=== PATIENT | female | born 1955 | race Caucasian/White ===

== ENCOUNTER → 2016-10-20 | Outpatient (CLI) | payer OTHER ==
[~2016-10-20] MED LIST: ANT25 PO; ASPI-435 PO; CYAN500S5 PO; LEVO75TA33 PO; LOSA50TA54 PO; OMEG10007 PO; TAMO20TA9 PO
== END | disposition home or self-care (01) ==
LOC: C.LABSPEC 13:21
PROVIDERS: ATTEND Family Medicine
DX: Z12.11 Encounter for screening for malignant neoplasm of colon (principal)

== ENCOUNTER → 2016-12-24 | Outpatient (CLI) | payer BC, OTHER ==
[~2016-12-24] MED LIST changes: +TAMO20TA47 PO; -TAMO20TA9 PO
[2016-12-24 13:35] VITALS: BP 105/71; PULSE 65; TEMP 36.7; O2SAT 95
--- NOTE | 2016-12-24 16:25 | Radiation Oncology Follow-Up ---
Radiation Oncology Follow-Up Date of Visit Dec 24, 2016. Reason For Visit Annual follow-up Radiation Completion Date finished 11-02-2012 Diagnosis (1) Breast cancer Status: Resolved Onset Date: 07/20/2012 Histology Subtype: ductal Stage: ll (A) Permanent Comment: Self detected right breast mass June 2012 Status post biopsy revealing infiltrating ductal carcinoma Estrogen receptor positive, progesterone receptor positive, HER-2/jakub negative Status post right partial mastectomy and sentinel lymph node biopsy pathologic stage pT2 pN0M0 Oncotype DX 22 Status post completion of radiation therapy 11/02/2012 received 6000 cGy. Ongoing treatment with tamoxifen Last Edited By: Radha Tobias on Jun 26, 2015 16:10 History of Present Illness Ms. Holt is a 60-year-old female who is undergoing annual screening mammograms. Her most recent normal mammogram was on January 20, 2012. This showed no significant masses, calcifications, or other abnormal findings and was given a BI-RAD Code 2 with a recommended one-year followup. In June of 2012, however, patient self-detected a right breast mass in the outer portion of the right breast. She underwent a diagnostic mammogram and breast ultrasound on July 18, 2012. The lesion was identifiable to the examining radiologist. It measured 1.8 x 2 cm and was firm located at the 9:00 posterior depth position of the right breast. It was felt to be highly suggestive of malignancy and a biopsy was recommended. On July 20, 2012 an ultrasound-guided biopsy of the right breast with marking device inserted and post-digital mammographic and ultrasound imaging were performed. Biopsies confirmed a mass consistent with an infiltrating ductal carcinoma with a [place] score of 6 of 9. The tumor measured up to 0.6 cm on core biopsy. No CIS or LCIS identified. No lymphovascular or perineural invasion identified. Estrogen and Progesterone receptors were positive. HER-2/jakub was +1 and negative. Case 15- [id number]. The tissue was HER-2/jakub negative by FISH. After discussion of treatment options with the patient she opted to proceed with breast conserving therapy. Dr. Sorensen therefore proceeded with a partial mastectomy and sentinel lymph node biopsy. This procedure was performed on August 10, 2012. This confirmed an infiltrating ductal carcinoma [place] grade 7 of 9. The tumor measured 2.8 x 2.3 x 2.0 cm. DCIS was noted which was solid and cribriform with focal necrosis and a nuclear grade 2 out of 3. No LCIS was identified. The initial margins revealed infiltrating carcinoma extending to within less than 0.1 cm of the 12:00 margin and 0.1 cm of the 6:00 margin. Remaining en face margins are negative for in situ and invasive carcinoma. Atypical ductal hyperplasia is noted at the en face 9:00 margin. No lymphovascular invasion as noted but perineural invasion is present. Additional margins taken from the 12:00, 3:00, 6:00, 9:00 and posterior margins were all negative for in situ and invasive carcinoma. A single sentinel lymph node was identified. Isolated tumor cells were noted on routine sections and immunohistochemical stains for cytokeratin. The final pathology was therefore a pT2pN0(i+) (sn) stage IIa. Case 13 - [id number]. ER positive, DE positive, HER-2/jakub negative. The patient was seen by Dr. Dioni Mederos for evaluation of the role of adjuvant therapy. The recurrent score was a 22 which corresponds to an average rate of distant recurrence at 5 years following 5 years of Tamoxifen of 14%. With this information and after discussion of the risks and benefits of chemotherapy the patient chose to not proceed with chemotherapy but has agreed to hormonal therapy. She underwent radiation therapy to the whole breast completed 11/02/2012 received 6000 cGy. Interim History She's been doing well over this past year. She denies any changes to her breast. She is noted no masses or tenderness and no change of the axilla. She has no swelling of her arm. She is up-to-date on mammography. She was hospitalized briefly for Mnire's disease. She takes meclizine on a when necessary basis and and is steadily improving. She did undergo an MRI of the brain. In that was negative for intracranial masses and hemorrhage. The mammogram that was performed in February recommended follow-up MRI of the breast. We did discuss this over the phone and she declined the MRI. This was due to insurance coverage. She wished to continue with follow-up mammography alone. She does have a mammogram scheduled for February 2017. She continues on tamoxifen. Allergies Coded Allergies: Latex (Verified Allergy, Intermediate, RASH, ITCHY, 05/09/16) Home Medications Scheduled Aspirin (Aspirin 81), 81 MG PO DAILY Cyanocobalamin (Vitamin B-12), 500 MCG PO DAILY Fish Oil ([place]-3), 1 CAP PO DAILY Levothyroxine (Levoxyl), 0.075 MG PO DAILY Losartan Potassium (Cozaar), 1 TAB PO DAILY Tamoxifen (Nolvadex), 20 MG PO DAILY Scheduled PRN Meclizine HCl (Meclizine HCl), 25 MG PO Q6H PRN for dizzyness/nausea Review of Systems Gastrointestinal: Symptoms: WNL Oral: Symptoms: No Problems Respiratory: Symptoms: WNL Other Respiratory: " I had a sore throat for about 3 weeks, getting a little better " Urinary: Symptoms: WNL Skin: Symptoms: No Problems Breast: Right Upper Arm Measurement: 37.0 Right Mid Arm Measurement: 30.9 Right Wrist Measurement: 18.4 Left Upper Arm Measurement: 35.5 Left Mid Arm Measurement: 29.0 Left Wrist Measurement: 18.5 Arm Dominence: Right Patient Cosmetic Evaluation: Excellent Staff Cosmetic Evalaluation: Excellent Physical Exam Vital Signs Date Time Temp Pulse Resp B/P (MAP) Pulse Ox O2 Delivery O2 Flow Rate FiO2 12/24/16 13:35 36.7 65 20 105/71 95 Pain: Side: Bilateral Patient Pain Scale: 0 - 10 Initial Pain Intensity: 0.0 General Appearance: no apparent distress Eyes: normal inspection, EOMI ENT: normal ENT inspection, hearing grossly normal Neck: no adenopathy, thyroid normal Respiratory/Chest: lungs clear, no respiratory distress, no accessory muscle use Breast: Breast examination reveals well-healed incisions of the right breast. Her no masses or tenderness and no axillary adenopathy. There is mild deficit in the area of the lumpectomy site. There is slight telangiectasia. There are no masses or tenderness no axillary adenopathy. Using the [place] score cosmesis she has a good outcome. The left breast showed no masses or tenderness and no axillary adenopathy. Cardiovascular: regular rate, rhythm, no gallop, no murmur Abdomen: non tender, soft, no organomegaly Extremities: no pedal edema Neurologic/Psychiatric: no motor/sensory deficits, alert, normal mood/affect Skin: warm/dry Laboratory Studies Test 10/20/16 00:00 Stool Occult Blood NEGATIVE (NEGATIVE) Stool Occult Blood Sample #2 NEGATIVE (NEGATIVE) Stool Occult Blood Sample #3 NEGATIVE (NEGATIVE) Additional Studies Patient: AWAIS HOLT [facility] Rec: [id number] Address1: [address] Address2: Acct ID: [id number] Date: 1955 Sex: F Ref Phy: Att Phy: Radha Tobias PA-C Rita Phy: Leon Bush M.D. Inter Phy: Aleah Sevilla MD [facility] Zip: [place] [address] SC: C.MAMM Report #: [id number] Cytology Technologist: JV Diagnosis: HX OF BREAST CA C50.411 Service Date: 03/09/16 MNE: [id number] Ordering Dr: Radha Tobias PA-C CC: Radha Tobias PA-C CONF: DICTATED BY: Aleah Sevilla MD MAMMOGRAPHY REPORT BILATERAL DIGITAL DIAGNOSTIC MAMMOGRAM 3D/2D WITH CAD: 03/09/2016 CLINICAL HISTORY: Asymptomatic. Personal history of breast cancer. MRI guided biopsy performed in the right breast in March 2015 yielded benign pathology results. Comparison is made to exams dated: 04/03/2015 mammogram, 04/03/2015 MRI biopsy , 03/05/2015 mammogram, 03/05/2015 ultrasound, 02/25/2015 breast MRI, and 2014 mammogram - [facility]. FINDINGS: Bilateral CC and MLO 2-D digital anterolisthesis images were obtained. The tissue of both breasts is heterogeneously dense, which may obscure small masses. Current study was also evaluated with a Computer Aided Detection (CAD) system. There is evidence of previous surgery in the right breast. A metallic biopsy marker is also seen in the 11:00 right breast, denoting the site of recent MRI guided biopsy which yielded benign pathology. There are benign rim calcifications in the right breast. No new suspicious mass, architectural distortion or cluster of microcalcifications is seen bilaterally. IMPRESSION: ACR BI-RADS CATEGORY 2: BENIGN 1. There is no mammographic evidence of malignancy bilaterally. A 1 year screening mammogram is recommended. 2. A follow-up breast MRI is also recommended to ensure stability after the right breast MRI guided biopsy which breast performed in March 2015 and also to provide additional screening in the left breast, given the personal history of breast cancer. This is also recommended after the biopsy from the report dated 04/03/2015. These results and recommendations were discussed with the patient at the time of the exam. Approximately 10% of breast cancers are not detected with mammography. A negative mammographic report should not delay biopsy if a clinically suggestive mass is present. Aleah Sevilla M.D. ay/:03/09/2016 14:09:00 Customer Care Specialist: Shannan Good, [facility] letter sent: Normal 1/2 BI-RADS Code: ACR BI-RADS Category 2: Benign Dictated by: Aleah Sevilla MD Signed by: Aleah Sevilla MD Assessment & Plan Plan: Continue with annual mammography. We reviewed again today the follow-up MRI of the breast. In T MUSE to have concern with insurance coverage and declines to have an MRI of the breasts. She'll continue tamoxifen. Continue regular follow-up with Dr. Mederos and her primary care provider. We asked her to return to our office in 1 year. She may call if she has any questions or concerns in the interim. Total Time In Follow-Up I spent 20 minutes speaking to the patient and perform examination. I set 15 minutes reviewing information in completing this note Copy To Leon Bush M.D.; Dioni Mederos M.D. Problem Qualifiers (1) Breast cancer: Breast location: upper outer quadrant of breast Estrogen receptor status: positive Patient sex: female Laterality: right Qualified Codes: C50.411 - Malignant neoplasm of upper-outer quadrant of right female breast; Z17.0 - Estrogen receptor positive status [ER+]
== END | disposition home or self-care (01) ==
LOC: C.ONC 13:16
PROVIDERS: ATTEND Physician Assistant Medical
DX: Z08 Encounter for follow-up examination after completed treatment for malignant neoplasm (principal); Z92.3 Personal history of irradiation; Z85.3 Personal history of malignant neoplasm of breast

== ENCOUNTER → 2017-03-15 | Outpatient (CLI) | payer OTHER ==
[~2017-03-15] MED LIST changes: -TAMO20TA47 PO; +TAMO20TA9 PO
--- NOTE | 2017-03-15 13:35 | MAMMOGRAPHY REPORT ---
BILATERAL DIGITAL DIAGNOSTIC MAMMOGRAM TOMOSYNTHESIS WITH CAD: 03/15/2017 CLINICAL HISTORY: Asymptomatic. Personal history of breast cancer. TECHNIQUE: Bilateral breast tomosynthesis in addition to standard 2D mammography was performed. Curre nt study was also evaluated with a Computer Aided Detection (CAD) system. COMPARISON: Comparison is made to exams dated: 03/09/2016 mammogram, 03/05/2015 mammogram, 09/03/2014 mammogram, 03/05/2014 mammogram, 03/21/2013 mammogram, and 07/18/2012 ultrasound - [facility]. BREAST COMPOSITION: The tissue of both breasts is heterogeneously dense, which may obscure small mas ses. FINDINGS: There is evidence of prior lumpectomy in the upper outer posterior right breast, with expec marlena architectural distortion and mild skin irregularity. There is a also stable dumbbell shaped biop sy marker clip in the 11:00 to 12:00 posterior right breast, denoting the site of prior benign MRI gu ided biopsy. There is a small amount of expected architectural distortion along the biopsy tract as well. No new suspicious mass, architectural distortion or cluster of microcalcifications is seen nalini aterally. IMPRESSION: ACR BI-RADS CATEGORY 2: BENIGN Stable mammographic appearance of the breast including postsurgical and postbiopsy changes in the rig ht breast, without mammographic evidence of malignancy bilaterally. Recommend routine screening mamm ography in one year and also consider additional surveillance with breast MRI given heterogeneously d ense breasts and personal history of right breast cancer. These results and recommendations were discussed with the patient at the time of the exam. Approximately 10% of breast cancers are not detected with mammography. A negative mammographic report should not delay biopsy if a clinically suggestive mass is present. Aleah Sevilla M.D. ay/:03/15/2017 12:39:12 Victims Advocate Clerk/Specialist: Rose HEARN(Oleg)(M), [facility] letter sent: Normal 1/2 BI-RADS Code: ACR BI-RADS Category 2: Benign
== END | disposition home or self-care (01) ==
LOC: C.MAMM 10:55
PROVIDERS: ATTEND Family Medicine
DX: Z85.3 Personal history of malignant neoplasm of breast (principal)

== ENCOUNTER → 2017-08-17 | Outpatient (CLI) | payer BC ==
--- NOTE | 2017-08-17 13:10 | DIAGNOSTIC IMAGING REPORT ---
RIGHT TIBIA AND FIBULA 2 VIEWS CLINICAL HISTORY: Fall with right leg pain. FINDINGS: AP and lateral views of the right tibia and fibula are obtained. No prior studies are available for comparison at the time of dictation. The skeletal structures are osteopenic. There is no radiographic evidence of right tibial fracture. A minimally distracted spiral fracture of the distal fibula is observed. Overlying soft tissue edema is noted. The knee and ankle joints are grossly maintained. IMPRESSION: 1. There is a minimally distracted spiral fracture of the distal fibula. 2. No tibial fracture is seen. Electronically signed by: Leon Kapoor M.D. 08/17/2017 1:09 PM Dictated Date/Time: 08/17/2017 1:08 PM
--- NOTE | 2017-08-17 13:11 | DIAGNOSTIC IMAGING REPORT ---
R ANKLE MIN 3 VIEWS ROUTINE CLINICAL HISTORY: M25.571 right ankle pain status post trauma COMPARISON: None. DISCUSSION: There is an oblique fracture of the distal fibula with 2.5 mm of maximal displacement. No tibial fractures are visualized. The ankle mortise appears intact on these nonstress views. There is prominent calcaneal spurring. IMPRESSION: Oblique fracture of the distal fibula. Electronically signed by: Mahin Paredes M.D. 08/17/2017 1:10 PM Dictated Date/Time: 08/17/2017 1:08 PM
== END | disposition home or self-care (01) ==
LOC: C.LAB 12:28
PROVIDERS: ATTEND Family Medicine
DX: S82.441A Displaced spiral fracture of shaft of right fibula, initial encounter for closed fracture (principal); X58.XXXA Exposure to other specified factors, initial encounter

== ENCOUNTER → 2017-12-23 | Outpatient (CLI) | payer BC ==
[2016-12-24 13:35] VITALS: BP 105/71; PULSE 65
[~2017-12-23] MED LIST changes: +ATEN50TA8 PO; +RIVA1TAB4 PO
[2017-12-23 13:16] VITALS: BP 117/79; PULSE 64; TEMP 36.7; O2SAT 100
--- NOTE | 2017-12-23 14:45 | Radiation Oncology Follow-Up ---
Radiation Oncology Follow-Up Date of Visit Dec 23, 2017. Reason For Visit Annual follow-up Radiation Completion Date 11/02/12 Diagnosis (1) Breast cancer Status: Resolved Onset Date: 07/20/2012 Histology Subtype: Ductal Stage: ll (A) Permanent Comment: Self detected right breast mass June 2012 Status post biopsy revealing infiltrating ductal carcinoma Estrogen receptor positive, progesterone receptor positive, HER-2/jakub negative Status post right partial mastectomy and sentinel lymph node biopsy pathologic stage pT2 pN0M0 Oncotype DX 22 Status post completion of radiation therapy 11/02/2012 received 6000 cGy. Ongoing treatment with tamoxifen Last Edited By: Radha Tobias on Jun 26, 2015 16:10 History of Present Illness Ms. Holt had been undergoing annual screening mammograms. Her most recent normal mammogram was on January 20, 2012. This showed no significant masses, calcifications, or other abnormal findings and was given a BI-RAD Code 2 with a recommended one-year followup. In June of 2012, however, patient self-detected a right breast mass in the outer portion of the right breast. She underwent a diagnostic mammogram and breast ultrasound on July 18, 2012. The lesion was identifiable to the examining radiologist. It measured 1.8 x 2 cm and was firm located at the 9:00 posterior depth position of the right breast. It was felt to be highly suggestive of malignancy and a biopsy was recommended. On July 20, 2012 an ultrasound-guided biopsy of the right breast with marking device inserted and post-digital mammographic and ultrasound imaging were performed. Biopsies confirmed a mass consistent with an infiltrating ductal carcinoma with a Warren score of 6 of 9. The tumor measured up to 0.6 cm on core biopsy. No CIS or LCIS identified. No lymphovascular or perineural invasion identified. Estrogen and Progesterone receptors were positive. HER-2/jakub was +1 and negative. Case [id number]. The tissue was HER-2/jakub negative by FISH. After discussion of treatment options with the patient she opted to proceed with breast conserving therapy. Dr. Sorensen therefore proceeded with a partial mastectomy and sentinel lymph node biopsy. This procedure was performed on August 10, 2012. This confirmed an infiltrating ductal carcinoma Warren grade 7 of 9. The tumor measured 2.8 x 2.3 x 2.0 cm. DCIS was noted which was solid and cribriform with focal necrosis and a nuclear grade 2 out of 3. No LCIS was identified. The initial margins revealed infiltrating carcinoma extending to within less than 0.1 cm of the 12:00 margin and 0.1 cm of the 6:00 margin. Remaining en face margins are negative for in situ and invasive carcinoma. Atypical ductal hyperplasia is noted at the en face 9:00 margin. No lymphovascular invasion as noted but perineural invasion is present. Additional margins taken from the 12:00, 3:00, 6:00, 9:00 and posterior margins were all negative for in situ and invasive carcinoma. A single sentinel lymph node was identified. Isolated tumor cells were noted on routine sections and immunohistochemical stains for cytokeratin. The final pathology was therefore a pT2pN0(i+) (sn) stage IIa. Case 13 - [id number]. ER positive, LA positive, HER-2/jakub negative. The patient was seen by Dr. Dioni Mederos for evaluation of the role of adjuvant therapy. The recurrent score was a 22 which corresponds to an average rate of distant recurrence at 5 years following 5 years of Tamoxifen of 14%. With this information and after discussion of the risks and benefits of chemotherapy the patient chose to not proceed with chemotherapy but has agreed to hormonal therapy. She underwent radiation therapy to the whole breast completed 11/02/2012 received 6000 cGy. Interim History She has been doing well over this past year in regards to her breast. She is noted no masses or tenderness no change of the axilla. She has had no swelling of her arm. She is up-to-date on mammography. She did fall on the ice and sustained a fracture to her ankle. More recently she developed a DVT and is now on Xarelto. Allergies Coded Allergies: Latex (Verified Allergy, Intermediate, RASH, ITCHY, 05/09/16) Home Medications Scheduled Atenolol (Tenormin), 50 MG PO DAILY Cyanocobalamin (Vitamin B-12), 500 MCG PO DAILY Fish Oil (Rahway-3), 1 CAP PO DAILY Levothyroxine (Levoxyl), 0.075 MG PO DAILY Losartan Potassium (Cozaar), 1 TAB PO DAILY Rivaroxaban (Xarelto), 1 TAB PO DAILY Tamoxifen (Nolvadex), 20 MG PO DAILY Scheduled PRN Meclizine HCl (Meclizine HCl), 25 MG PO Q6H PRN for dizzyness/nausea Review of Systems Gastrointestinal: Symptoms: WNL Oral: Symptoms: No Problems Respiratory: Symptoms: WNL Other Respiratory: " I had a sore throat for about 3 weeks, getting a little better " Urinary: Symptoms: WNL Skin: Symptoms: No Problems Breast: Right Upper Arm Measurement: 36.0 Right Mid Arm Measurement: 31.3 Right Wrist Measurement: 18.0 Left Upper Arm Measurement: 35.0 Left Mid Arm Measurement: 30.3 Left Wrist Measurement: 17.8 Arm Dominence: Right Patient Cosmetic Evaluation: Excellent Staff Cosmetic Evalaluation: Excellent Physical Exam Vital Signs Date Time Temp Pulse Resp B/P (MAP) Pulse Ox O2 Delivery O2 Flow Rate FiO2 12/23/17 13:16 36.7 64 16 117/79 100 ECOG Performance Status: 0 Fatigue: None General Appearance: no apparent distress Eyes: normal inspection, EOMI ENT: normal ENT inspection, hearing grossly normal Neck: no adenopathy, thyroid normal Respiratory/Chest: lungs clear, no respiratory distress, no accessory muscle use Breast: Breast examination reveals well-healed incisions of the right breast. There are no masses or tenderness and no axillary adenopathy. There are generalized fibrocystic changes. Using the [place] score cosmesis she has a good outcome. Left breast showed no masses or tenderness and no axillary adenopathy. Cardiovascular: regular rate, rhythm, no gallop, no murmur Extremities: no pedal edema Neurologic/Psychiatric: no motor/sensory deficits, alert, normal mood/affect Skin: warm/dry Lymphatic: no adenopathy Pain Management Patient Reports Pain: No Side: Bilateral Patient Preferred Pain Scale: 0 - 10 Initial Pain Intensity: 0.0 Pain Management Plan She denies pain therefore requires no pain management. Laboratory Laboratory Results: not applicable Pathology Pathology Results: were reviewed, and pertinent findings noted in HPI Imaging Imaging Studies: were reviewed, and pertinent findings noted below Imaging Comments Patient: AWAIS HOLT [facility] Rec: [id number] Address1: [address] [place] [address] [id number] Date: 1955 Sex: F Ref Phy: Leon Bush M.D. Att Phy: Leon Bush M.D. Rita Phy: Leon Bush M.D. Inter Phy: Aleah Sevilla MD [facility] Zip: [place] [address] SC: C.MAMM Report #: [id number] Wildlife Policy Professional: YOVANY Diagnosis: ASYMPTOMATIC HX OF BREAST CA Service Date: 03/15/17 MNE: [id number] Ordering Dr: Leon Bush M.D. CC: Leon Bush M.D. CONF: DICTATED BY: Aleah Sevilla MD MAMMOGRAPHY REPORT BILATERAL DIGITAL DIAGNOSTIC MAMMOGRAM TOMOSYNTHESIS WITH CAD: 03/15/2017 CLINICAL HISTORY: Asymptomatic. Personal history of breast cancer. TECHNIQUE: Bilateral breast tomosynthesis in addition to standard 2D mammography was performed. Current study was also evaluated with a Computer Aided Detection (CAD) system. COMPARISON: Comparison is made to exams dated: 03/09/2016 mammogram, 2014 mammogram, 09/03/2014 mammogram, 03/05/2014 mammogram, 03/21/2013 mammogram , and 07/18/2012 [facility]. BREAST COMPOSITION: The tissue of both breasts is heterogeneously dense, which may obscure small masses. FINDINGS: There is evidence of prior lumpectomy in the upper outer posterior right breast, with expected architectural distortion and mild skin irregularity. There is a also stable dumbbell shaped biopsy marker clip in the 11:00 to 12:00 posterior right breast, denoting the site of prior benign MRI guided biopsy. There is a small amount of expected architectural distortion along the biopsy tract as well. No new suspicious mass, architectural distortion or cluster of microcalcifications is seen bilaterally. IMPRESSION: ACR BI-RADS CATEGORY 2: BENIGN Stable mammographic appearance of the breast including postsurgical and postbiopsy changes in the right breast, without mammographic evidence of malignancy bilaterally. Recommend routine screening mammography in one year and also consider additional surveillance with breast MRI given heterogeneously dense breasts and personal history of right breast cancer. These results and recommendations were discussed with the patient at the time of the exam. Approximately 10% of breast cancers are not detected with mammography. A negative mammographic report should not delay biopsy if a clinically suggestive mass is present. Aleah Sevilla M.D. ay/:03/15/2017 12:39:12 Assessment & Plan Plan: Continue with annual mammography. She has a mammogram scheduled for February. There has been mention of surveillance MRI. Her insurance does not cover breast MRIs. She declines to have one scheduled at this time. We discussed that she does have breasts that are dense and this would give additional information. She stated that once she has Medicare insurance she may consider having the MRI. She will need to follow-up with medical oncology in regards to having a DVT and being on tamoxifen. She is currently on Xarelto. I have asked her to call and review this with this with Maryann Stark PA-C. She will be at risk for having another DVT when she goes off of Xarelto. A follow-up appointment with our office was not given. She will continue follow-up now with her primary care provider and medical oncology. She may call if she has any questions or concerns in the interim. Total Time In Follow-Up I spent 20 minutes speaking to the patient and performing examination. I spent 15 minutes reviewing information and completing this note. Copy To Leon Bush M.D.; Maryann Stark PA-C Problem Qualifiers (1) Breast cancer: Breast location: lower outer quadrant of breast Estrogen receptor status: positive Patient sex: female Laterality: right Qualified Codes: C50.511 - Malignant neoplasm of lower-outer quadrant of right female breast; Z17.0 - Estrogen receptor positive status [ER+]
== END | disposition home or self-care (01) ==
LOC: C.ONC 13:07
PROVIDERS: ATTEND Physician Assistant Medical
DX: Z08 Encounter for follow-up examination after completed treatment for malignant neoplasm (principal); Z92.3 Personal history of irradiation; Z85.3 Personal history of malignant neoplasm of breast